=== PATIENT | male | born 1980 | race Caucasian/White ===

== ENCOUNTER 2018-02-17 08:29 | Day surgery (SDC) | payer OTHER ==
[2018-02-17] MEDS ORDERED: SOD CHLORIDE 0.9% 1,000 ML IV (09:00)
[2018-02-17] MEDS ORDERED: CEFAZOLIN 1 GM/50 ML (PMX) 50 ML IVPB (09:00)
[2018-02-17 09:09] LABS: ADD MAN DIFF? NO
[2018-02-17 09:16] LABS: WHITE BLOOD COUNT 4.3 10^3/ul (4.8-10.8)
[2018-02-17 09:16] LABS: BASOPHIL # 0.1 10^3/ul (0.0-0.1); BASOPHILS % 1.2 % (0.0-2.0); EOSINOPHILS # 0.4 10^3/ul (0.0-0.5); EOSINOPHILS % 9.5 % (0.0-7.0); HEMATOCRIT 41.5 % (42.0-52.0); HEMOGLOBIN 15.2 g/dl (14.0-18.0); LYMPHOCYTES # 1.3 10^3/ul (0.8-2.9); LYMPHOCYTES % 30.9 % (15.0-51.0); MEAN CORPUSCULAR HEMOGLOBIN 30.8 pg (29.0-33.0); MEAN CORPUSCULAR HGB CONC 36.6 g/dl (32.0-37.0); MEAN CORPUSCULAR VOLUME 84.2 fl (82.0-101.0); MEAN PLATELET VOLUME 10.1 fl (7.4-10.4); MONOCYTE # 0.6 10^3/ul (0.3-0.9); MONOCYTES % 12.8 % (0.0-11.0); NEUTROPHILS % 45.4 % (39.0-77.0); PLATELET COUNT 224 10^3/UL (140-415); RED BLOOD COUNT 4.93 10^6/ul (4.70-6.10); RED CELL DISTRIBUTION WIDTH 12.6 % (11.5-14.5)
[2018-02-17 09:20] LABS: HOLD TRANSMISSIONS 1
[2018-02-17] MEDS ORDERED: MIDAZOLAM 1 MG/ML 2 ML INJ (09:29)
[2018-02-17] MEDS ORDERED: CEFAZOLIN 1 GM INJ (09:29)
[2018-02-17] MEDS ORDERED: FENTAnyl 50 MCG/ML VIAL (09:29)
[2018-02-17] MEDS ORDERED: PROPOFOL 20 ML (09:29)
[2018-02-17] MEDS ORDERED: SCOPOLAMINE 1.5 MG PATCH (09:35)
[2018-02-17 09:38] LABS: ALANINE AMINOTRANSFERASE 42 IU/L (13-69); ALBUMIN 4.3 g/dl (3.3-4.9); ALBUMIN/GLOBULIN RATIO 1.38; ALKALINE PHOSPHATASE 73 IU/L (42-121); ANION GAP 16 (8-16); ASPARTATE AMINO TRANSFERASE 32 IU/L (15-46); CARBON DIOXIDE 28 mmol/L (21-31); CHLORIDE 104 mmol/L (97-110); GLUCOSE 86 mg/dl (70-220); TOTAL PROTEIN 7.4 g/dl (6.1-8.1)
[2018-02-17 09:39] LABS: BLOOD UREA NITROGEN 14 mg/dl (7-20); CALCIUM 9.1 mg/dl (8.4-10.2); CREATININE 0.93 mg/dl (0.61-1.24); SODIUM 144 mmol/L (135-144)
[2018-02-17 09:41] LABS: INR 0.92; PROTIME 12.4 Sec (11.9-14.9)
[2018-02-17 09:42] LABS: PARTIAL THROMBOPLASTIN TIME 29.6 Sec (25.0-35.0)
[2018-02-17] MEDS ORDERED: BUPIVACAINE 0.25% (MPF) 30 ML INJ (09:57)
[2018-02-17] MEDS ORDERED: ONDANSETRON 4 MG INJ (10:12)
[2018-02-17] MEDS ORDERED: DEXAMETHASONE 4 MG/ML 1 ML INJ (10:12)
[2018-02-17] MEDS: BUPIVACAINE 0.25% (MPF) 30 ML INJ INJ (10:18)
[2018-02-17] MEDS ORDERED: FENTAnyl 50 MCG/ML VIAL IV ×2 (10:30)
[2018-02-17] MEDS ORDERED: BACITRACIN/POLYMYXIN 28.35 GM OINT TOP (10:37)
[2018-02-17] MEDS ORDERED: HYDROCODONE/APAP (5/325) TAB PO (11:00)
[2018-02-17] MEDS: ONDANSETRON 4 MG INJ IV (11:08)
[2018-02-17] MEDS: MEPERIDINE 25 MG INJ IV (11:09)
== END 2018-02-17 12:41 | disposition home or self-care (01) ==
LOC: SDS 08:29
DX: C44.41 Basal cell carcinoma of skin of scalp and neck (principal); I10 Essential (primary) hypertension
CPT/HCPCS: 14020; 80053; 85025; 85610; 85730; 88307